=== PATIENT | male | born 1980 | race Two or more races ===

== ENCOUNTER 2021-07-21 13:38 | Emergency (ER) | payer MEDICAID, OTHER ==
[~2021-07-21] VITALS: Ht 182.9 cm; Wt 90.7 kg
[2021-07-21] MEDS ORDERED: LORazepam 2MG/ML-1ML VIAL IV ONE ×2 (14:30→16:00)
[2021-07-21 15:02] LABS: Basophils # (auto) 0.1 10 ^3/uL (0-0.2); Basophils % (auto) 0.7 % (0.0-2.0); Eosinophils # (auto) 0 10 ^3/uL (0-0.8); Eosinophils % (auto) 0.3 % (0.0-7.0); Hemoglobin 13.7 g/dL (13.5-17.5); Lymphocytes # (auto) 1.3 10 ^3/uL (0.4-5.4); Lymphocytes % (auto) 12.2 % (10.0-50.0); Mean Corpuscular Hemoglobin 28.4 pg (28.0-32.0); Mean Corpuscular Hgb Conc. 33.4 g/dL (32.0-36.0); Mean Corpuscular Volume 85.2 fL (80.0-100.0); Monocytes # (auto) 0.6 10 ^3/uL (0-1.3); Monocytes % (auto) 5.4 % (0.0-12.0); Neutrophils % (auto) 81.4 % (37.0-80.0); Red Blood Cells 4.82 10^6/uL (4.5-5.90); Red Cell Distribution Width 14.1 % (11.8-14.3)
[2021-07-21 15:23] LABS: Calcium 9.3 mg/dL (8.5-10.1); Potassium 3.2 mmol/L (3.5-5.1)
[2021-07-21 15:26] LABS: Albumin 3.6 g/dL (3.4-5.0); BUN/Creatinine Ratio 3.8
[2021-07-21 15:29] LABS: Bilirubin, Total 0.4 mg/dL (0.2-1.0); Total Protein 7.6 g/dL (6.4-8.2)
[2021-07-21] MEDS ORDERED: CARVEDILOL 12.5 MG TAB PO ONE (18:15)
[2021-07-21] MEDS ORDERED: NIFEdipine 10 MG CAP PO ONE (18:15)
[2021-07-21 19:22] VITALS: BP 138/60
[2021-07-21] MEDS ORDERED: LORazepam 0.5 MG TAB PO ONE (20:00)
[2021-07-21] MEDS ORDERED: LORazepam 0.5 MG TAB ONE (20:19)
== END 2021-07-21 20:54 | disposition home or self-care (01) ==
LOC: ER 13:38 → EDBD 13:38 → ER 20:40
DX: F11.10 Opioid abuse, uncomplicated (principal); I12.0 Hypertensive chronic kidney disease with stage 5 chronic kidney disease or end stage renal disease; N18.6 End stage renal disease; Z99.2 Dependence on renal dialysis; Z88.0 Allergy status to penicillin
CPT/HCPCS: 36415; 80053; 85025; 93005; 96374; 96376; 99284; J2060; 96375

== ENCOUNTER 2021-09-22 11:17 | Inpatient (IN) | payer MEDICAID ==
[~2021-09-22] VITALS: Ht 182.9 cm; Wt 97.6 kg
[2021-09-22] MEDS: ACCU-CHEK COMFORT CURVE STRIP VI SCH
[2021-09-22] MEDS: InsuLIN REG 1unit/0.01ml Soln (100units/ml) SC SCH
[2021-09-22] MEDS ORDERED: cloNIDine HCL 0.1 MG TAB PO ONE (11:30)
[2021-09-22 12:08] LABS: Basophils # (auto) 0.1 10 ^3/uL (0-0.2); Basophils % (auto) 0.4 % (0.0-2.0); Eosinophils # (auto) 0 10 ^3/uL (0-0.8); Eosinophils % (auto) 0.2 % (0.0-7.0); Hematocrit 31.8 % (41.0-53.0); Hemoglobin 10.8 g/dL (13.5-17.5); Lymphocytes # (auto) 0.9 10 ^3/uL (0.4-5.4); Lymphocytes % (auto) 5.1 % (10.0-50.0); Mean Corpuscular Hemoglobin 29.4 pg (28.0-32.0); Mean Corpuscular Hgb Conc. 33.9 g/dL (32.0-36.0); Mean Corpuscular Volume 86.9 fL (80.0-100.0); Monocytes # (auto) 1.2 10 ^3/uL (0-1.3); Monocytes % (auto) 6.5 % (0.0-12.0); Neutrophils # (auto) 16.1 10 ^3/uL (1.6-8.6); Neutrophils % (auto) 87.8 % (37.0-80.0); Red Blood Cells 3.66 10^6/uL (4.5-5.90); Red Cell Distribution Width 13.4 % (11.8-14.3); White Blood Cell 18.4 10^3/uL (4.4-10.8)
[2021-09-22 12:26] LABS: Albumin 2.2 g/dL (3.4-5.0); BUN/Creatinine Ratio 5.9; Magnesium 2.9 mg/dL (1.6-2.6); Potassium 3.4 mmol/L (3.5-5.1)
[2021-09-22 12:29] LABS: Bilirubin, Total 0.3 mg/dL (0.2-1.0); Total Protein 7.2 g/dL (6.4-8.2)
[2021-09-22] MEDS ORDERED: ONDANSETRON HCL 4 MG/2 ML VIAL IV ONE (14:00)
[2021-09-22] MEDS ORDERED: SODIUM CHLORIDE 0.9% 1,000 ML IV ONE (14:00)
[2021-09-22] MEDS ORDERED: MORPHINE SULFATE 4 MG/ML SYR/VIAL IV ONE (14:00)
[2021-09-22 16:03] LABS: Urine Bacteria FEW /hpf (None Seen); Urine Blood 2+ /uL (Negative); Urine Hyaline Cast MOD /lpf (0 - 2); Urine Specific Gravity 1.033 (1.001-1.035); Urine WBC 504 /hpf (0 - 3); Urine WBC Clumps PRESENT /hpf (None Seen)
[2021-09-22] MEDS ORDERED: cefTRIAXone 1GM/50ML D5W 50 ML IV ONE (17:30)
[2021-09-22] MEDS ORDERED: NITROGLYCERIN 0.4 MG SL TAB SL PRN (17:45)
[2021-09-22] MEDS ORDERED: DEXTROSE (50%) 50ML SYRG IV PRN ×2 (17:45→22:00)
[2021-09-22] MEDS ORDERED: LABETALOL HCL 5 MG/ML 4ML SYRINGE IV ONE (17:45)
[2021-09-22] MEDS ORDERED: ACCU-CHEK COMFORT CURVE STRIP VI SCH (18:00)
[2021-09-22] MEDS ORDERED: InsuLIN REG 1unit/0.01ml Soln (100units/ml) SC SCH (18:00)
[2021-09-22] MEDS: MORPHINE SULFATE INJECTION 2 MG/ML SYRG IV PRN (20:19)
[2021-09-22] MEDS ORDERED: hydrALAZINE HCL 25 MG TAB PO ONE (20:30)
[2021-09-22] MEDS ORDERED: NIFEdipine ER 30 MG TAB PO ONE ×2 (20:30→23:52)
[2021-09-22] MEDS ORDERED: hydrALAZINE HCL 20 MG/ML VL IV PRN (20:30)
[2021-09-22] MEDS: LABETALOL HCL 5 MG/ML 4ML SYRINGE IV PRN (21:56)
[2021-09-22] MEDS ORDERED: MEROPENEM 500MG IVPB 50 ML IV ONE (22:00)
[2021-09-22 22:49] LABS: Phosphorus 3.1 mg/dL (2.5-4.90)
[2021-09-22] MEDS ORDERED: hydrALAZINE HCL 25 MG TAB ONE (23:52)
[2021-09-22] MEDS ORDERED: MEROPENEM 1GM IVPB 100 ML IV ONE (23:53)
[2021-09-23] MEDS: MORPHINE SULFATE INJECTION 2 MG/ML SYRG IV PRN ×6 (00:30→20:30)
[2021-09-23] MEDS ORDERED: VANCOMYCIN PER PHARMACY 0 MG IV SCH (02:00)
[2021-09-23] MEDS ORDERED: CARVEDILOL 12.5 MG TAB PO ONE (02:00)
[2021-09-23] MEDS ORDERED: BENAZEPRIL HCL 10 MG TAB PO ONE (02:00)
[2021-09-23] MEDS ORDERED: PANTOPRAZOLE 40 MG/10 ML VIAL INJ IV ONE ×2 (02:00→02:20)
[2021-09-23] MEDS ORDERED: BUMETANIDE 2.5mg/10ml (0.25 mg/ml) INJ IV ONE (02:00)
[2021-09-23] MEDS ORDERED: NITROGLYCERIN 0.4 MG SL TAB SL PRN (02:15)
[2021-09-23] MEDS ORDERED: MORPHINE SULFATE INJECTION 2 MG/ML SYRG IV PRN (02:15)
[2021-09-23] MEDS ORDERED: ACETAMINOPHEN 325 MG TAB PO PRN (02:15)
[2021-09-23] MEDS ORDERED: METOCLOPRAMIDE HCL 5MG/ml INJ 2ml VIAL IV PRN (02:15)
[2021-09-23] MEDS ORDERED: DOCUSATE SOD 100 MG CAP PO PRN (02:15)
[2021-09-23] MEDS ORDERED: ALUM & MAG HYDROX-SIMETH LIQ(MAALOX) 30 ML PO PRN (02:15)
[2021-09-23] MEDS ORDERED: BUMETANIDE INJECTION 10 ML ONE (02:20)
[2021-09-23] MEDS ORDERED: CARVEDILOL 12.5 MG TAB ONE (02:20)
[2021-09-23] MEDS ORDERED: BENAZEPRIL HCL 10 MG TAB ONE (02:20)
[2021-09-23] MEDS ORDERED: VANCOMYCIN 1GM/250ML 250 ML IV ONE ×2 (02:30→02:46)
[2021-09-23] MEDS ORDERED: fentaNYL CITRATE 100 MCG/2 ML VL ONE (03:19)
[2021-09-23] MEDS ORDERED: fentaNYL CITRATE 100 MCG/2 ML VL IV ONE (03:30)
[2021-09-23] MEDS: BUMETANIDE 2.5mg/10ml (0.25 mg/ml) INJ IV SCH ×2 (05:48→18:15)
[2021-09-23] MEDS: ACCU-CHEK COMFORT CURVE STRIP VI SCH ×4 (06:14→22:17)
[2021-09-23] MEDS: InsuLIN REG 1unit/0.01ml Soln (100units/ml) SC SCH ×4 (06:19→22:20)
[2021-09-23 06:23] LABS: Basophils # (auto) 0.1 10 ^3/uL (0-0.2); Basophils % (auto) 0.3 % (0.0-2.0); Eosinophils # (auto) 0 10 ^3/uL (0-0.8); Eosinophils % (auto) 0.2 % (0.0-7.0); Hematocrit 28.9 % (41.0-53.0); Hemoglobin 9.9 g/dL (13.5-17.5); Lymphocytes # (auto) 1.3 10 ^3/uL (0.4-5.4); Lymphocytes % (auto) 6.5 % (10.0-50.0); Mean Corpuscular Hemoglobin 29.2 pg (28.0-32.0); Mean Corpuscular Hgb Conc. 34.1 g/dL (32.0-36.0); Mean Corpuscular Volume 85.6 fL (80.0-100.0); Monocytes # (auto) 1.3 10 ^3/uL (0-1.3); Monocytes % (auto) 6.5 % (0.0-12.0); Neutrophils # (auto) 16.9 10 ^3/uL (1.6-8.6); Neutrophils % (auto) 86.5 % (37.0-80.0); Red Blood Cells 3.38 10^6/uL (4.5-5.90); Red Cell Distribution Width 13.3 % (11.8-14.3); White Blood Cell 19.6 10^3/uL (4.4-10.8)
[2021-09-23 06:32] LABS: Albumin 2.1 g/dL (3.4-5.0); Calcium 8.3 mg/dL (8.5-10.1); Potassium 3.1 mmol/L (3.5-5.1)
[2021-09-23 06:33] LABS: INR 0.96 (0.9-1.15); Partial Thromboplastin Time 31.6 sec (23.6-33.0)
[2021-09-23 06:36] LABS: BUN/Creatinine Ratio 6.1; Bilirubin, Total 0.3 mg/dL (0.2-1.0); Phosphorus 3.1 mg/dL (2.5-4.90); Total Protein 6.4 g/dL (6.4-8.2)
[2021-09-23] MEDS: LORazepam 0.5 MG TAB PO PRN ×2 (08:00→22:04)
[2021-09-23] MEDS: SEVELAMER 800 MG TAB PO SCH ×3 (09:23→18:15)
[2021-09-23] MEDS: ASPirin 81 mg TAB PO SCH (10:14)
[2021-09-23] MEDS: hydrALAZINE HCL 25 MG TAB PO SCH ×2 (10:15→22:03)
[2021-09-23] MEDS: CARVEDILOL 12.5 MG TAB PO SCH ×2 (10:15→22:04)
[2021-09-23] MEDS: B-COMPLEX W/ C & FOLIC ACID(NEPHROVITE TAB) PO SCH (10:16)
[2021-09-23] MEDS: ENOXAPARIN SOD 30 MG/0.3 ML SYRINGE SC SCH (10:16)
[2021-09-23] MEDS: CALCITRIOL 0.25 MCG CAP PO SCH (10:16)
[2021-09-23] MEDS ORDERED: HYDROmorphone HCL 2 MG/ML VL ONE ×2 (11:09→11:11)
[2021-09-23] MEDS ORDERED: HYDROmorphone HCL 2 MG/ML VL IV ONE (11:15)
[2021-09-23 15:30] LABS: Urine Bacteria FEW /hpf (None Seen); Urine Blood 2+ /uL (Negative); Urine WBC 2050 /hpf (0 - 3); Urine WBC Clumps PRESENT /hpf (None Seen)
[2021-09-23 15:36] LABS: Alcohol, Urine < 3.0 mg/dL (0-10); Amphetamine Screen, Urine NEGATIVE (NEGATIVE); Barbiturate Scree,Urine NEGATIVE (NEGATIVE); Benzodiazephine Screen, Urine NEGATIVE (NEGATIVE); Cannabinoid Screen, Urine POSITIVE (NEGATIVE); Cocaine Screen, Urine NEGATIVE (NEGATIVE); Phencyclidine Screen, Urine NEGATIVE (NEGATIVE)
[2021-09-23 15:45] LABS: Opiate Scree,Urine POSITIVE (NEGATIVE)
[2021-09-23] MEDS ORDERED: VANCOMYCIN 500 MG in D5W 5% 100 ML IV ONE (16:00)
[2021-09-23 16:20] VITALS: BP 119/69
[2021-09-23] MEDS: HYDROcodone-ACET 5/325MG TAB PO PRN ×2 (17:01→23:32)
[2021-09-23 22:00] VITALS: BP 16/80
[2021-09-23] MEDS ORDERED: MEROPENEM 500MG IVPB 50 ML IV SCH (22:00)
[2021-09-23] MEDS: PANTOPRAZOLE 40 MG/10 ML VIAL INJ IV SCH (22:03)
[2021-09-23] MEDS: ATORVASTATIN 20 MG TAB PO SCH (22:04)
[2021-09-23] MEDS: NIFEdipine ER 30 MG TAB PO SCH (22:04)
[2021-09-23] MEDS ORDERED: TEMAZEPAM 15 MG CAP PO ONE (23:45)
[2021-09-24] MEDS: MORPHINE SULFATE INJECTION 2 MG/ML SYRG IV PRN ×4 (00:30→12:53)
[2021-09-24] MEDS: HYDROcodone-ACET 5/325MG TAB PO PRN ×5 (03:38→22:58)
[2021-09-24 05:00] VITALS: BP 159/79
[2021-09-24] MEDS: BUMETANIDE 2.5mg/10ml (0.25 mg/ml) INJ IV SCH (06:14)
[2021-09-24] MEDS: ACCU-CHEK COMFORT CURVE STRIP VI SCH ×4 (06:36→22:04)
[2021-09-24] MEDS: InsuLIN REG 1unit/0.01ml Soln (100units/ml) SC SCH ×4 (06:38→22:05)
[2021-09-24] MEDS ORDERED: SODIUM CHL 0.9% 1000 ML BAG XX ONE (07:00)
[2021-09-24] MEDS: SEVELAMER 800 MG TAB PO SCH ×3 (08:51→18:12)
[2021-09-24] MEDS: ASPirin 81 mg TAB PO SCH (08:52)
[2021-09-24] MEDS: CALCITRIOL 0.25 MCG CAP PO SCH (08:53)
[2021-09-24] MEDS: B-COMPLEX W/ C & FOLIC ACID(NEPHROVITE TAB) PO SCH (08:53)
[2021-09-24 09:00] VITALS: BP 123/72
[2021-09-24] MEDS: hydrALAZINE HCL 25 MG TAB PO SCH ×2 (10:00→22:10)
[2021-09-24] MEDS: BENAZEPRIL HCL 10 MG TAB PO SCH (10:00)
[2021-09-24] MEDS: CARVEDILOL 12.5 MG TAB PO SCH ×2 (10:00→22:11)
[2021-09-24 10:26] LABS: Potassium 3.6 mmol/L (3.5-5.1)
[2021-09-24 10:31] LABS: BUN/Creatinine Ratio 5.7
[2021-09-24 10:40] LABS: Basophils # (auto) 0.1 10 ^3/uL (0-0.2); Basophils % (auto) 0.4 % (0.0-2.0); Eosinophils # (auto) 0.1 10 ^3/uL (0-0.8); Eosinophils % (auto) 0.4 % (0.0-7.0); Hematocrit 26.4 % (41.0-53.0); Hemoglobin 9.1 g/dL (13.5-17.5); Lymphocytes # (auto) 1.2 10 ^3/uL (0.4-5.4); Lymphocytes % (auto) 7.4 % (10.0-50.0); Mean Corpuscular Hemoglobin 29.4 pg (28.0-32.0); Mean Corpuscular Hgb Conc. 34.3 g/dL (32.0-36.0); Mean Corpuscular Volume 85.8 fL (80.0-100.0); Monocytes # (auto) 1.2 10 ^3/uL (0-1.3); Monocytes % (auto) 7.2 % (0.0-12.0); Neutrophils % (auto) 84.6 % (37.0-80.0); Red Blood Cells 3.08 10^6/uL (4.5-5.90); Red Cell Distribution Width 13.1 % (11.8-14.3); White Blood Cell 16.6 10^3/uL (4.4-10.8)
[2021-09-24] MEDS: ENOXAPARIN SOD 30 MG/0.3 ML SYRINGE SC SCH (11:15)
[2021-09-24] MEDS ORDERED: AZITHROMYCIN 500MG/ 250ML 250 ML IV ONE (12:15)
[2021-09-24 12:58] VITALS: BP 108/63
[2021-09-24] MEDS: HYDROmorphone HCL 2 MG TAB PO PRN ×2 (15:06→21:10)
[2021-09-24 17:00] VITALS: BP 112/67
[2021-09-24] MEDS ORDERED: VANCOMYCIN 1GM/250ML 250 ML IV ONE (21:00)
[2021-09-24 22:00] VITALS: BP 150/78
[2021-09-24] MEDS: PANTOPRAZOLE 40 MG/10 ML VIAL INJ IV SCH (22:10)
[2021-09-24] MEDS: NIFEdipine ER 30 MG TAB PO SCH (22:11)
[2021-09-24] MEDS: ATORVASTATIN 20 MG TAB PO SCH (22:11)
[2021-09-25] MEDS: HYDROmorphone HCL 2 MG TAB PO PRN ×4 (03:35→22:52)
[2021-09-25 05:00] VITALS: BP 138/96
[2021-09-25] MEDS: BUMETANIDE 2.5mg/10ml (0.25 mg/ml) INJ IV SCH ×2 (05:40→17:53)
[2021-09-25] MEDS: HYDROcodone-ACET 5/325MG TAB PO PRN ×4 (05:42→19:58)
[2021-09-25] MEDS: ACCU-CHEK COMFORT CURVE STRIP VI SCH ×4 (06:48→22:03)
[2021-09-25] MEDS: InsuLIN REG 1unit/0.01ml Soln (100units/ml) SC SCH ×4 (06:49→22:25)
[2021-09-25] MEDS: AZITHROMYCIN 500MG/ 250ML 250 ML IV SCH (08:10)
[2021-09-25] MEDS: hydrALAZINE HCL 25 MG TAB PO SCH ×2 (08:10→22:01)
[2021-09-25] MEDS: ASPirin 81 mg TAB PO SCH (08:10)
[2021-09-25] MEDS: SEVELAMER 800 MG TAB PO SCH ×3 (08:10→17:54)
[2021-09-25] MEDS: CARVEDILOL 12.5 MG TAB PO SCH ×2 (08:11→22:02)
[2021-09-25] MEDS: B-COMPLEX W/ C & FOLIC ACID(NEPHROVITE TAB) PO SCH (08:11)
[2021-09-25] MEDS: BENAZEPRIL HCL 10 MG TAB PO SCH (08:11)
[2021-09-25] MEDS: CALCITRIOL 0.25 MCG CAP PO SCH (08:11)
[2021-09-25] MEDS: ENOXAPARIN SOD 30 MG/0.3 ML SYRINGE SC SCH (08:12)
[2021-09-25] MEDS: LORazepam 0.5 MG TAB PO PRN ×3 (08:12→21:08)
[2021-09-25 08:45] VITALS: BP 164/94
[2021-09-25 12:49] VITALS: BP 147/88
[2021-09-25 17:00] VITALS: BP 162/73
[2021-09-25] MEDS: LABETALOL HCL 5 MG/ML 4ML SYRINGE IV PRN (17:55)
[2021-09-25 22:00] VITALS: BP 163/46
[2021-09-25] MEDS: PANTOPRAZOLE 40 MG/10 ML VIAL INJ IV SCH (22:01)
[2021-09-25] MEDS: ATORVASTATIN 20 MG TAB PO SCH (22:02)
[2021-09-25] MEDS: NIFEdipine ER 30 MG TAB PO SCH (22:03)
[2021-09-26] MEDS: HYDROcodone-ACET 5/325MG TAB PO PRN ×3 (00:18→07:59)
[2021-09-26] MEDS: LORazepam 0.5 MG TAB PO PRN ×3 (02:58→19:11)
[2021-09-26] MEDS: HYDROmorphone HCL 2 MG TAB PO PRN (04:55)
[2021-09-26 05:00] VITALS: BP 156/78
[2021-09-26] MEDS: ACCU-CHEK COMFORT CURVE STRIP VI SCH ×4 (06:11→22:25)
[2021-09-26] MEDS: BUMETANIDE 2.5mg/10ml (0.25 mg/ml) INJ IV SCH ×2 (06:11→17:34)
[2021-09-26] MEDS: InsuLIN REG 1unit/0.01ml Soln (100units/ml) SC SCH ×4 (06:19→22:00)
[2021-09-26] MEDS: AZITHROMYCIN 500MG/ 250ML 250 ML IV SCH (07:58)
[2021-09-26] MEDS: B-COMPLEX W/ C & FOLIC ACID(NEPHROVITE TAB) PO SCH (07:58)
[2021-09-26] MEDS: ASPirin 81 mg TAB PO SCH (07:58)
[2021-09-26] MEDS: SEVELAMER 800 MG TAB PO SCH ×3 (07:58→17:39)
[2021-09-26] MEDS: ENOXAPARIN SOD 30 MG/0.3 ML SYRINGE SC SCH (07:59)
[2021-09-26] MEDS: CALCITRIOL 0.25 MCG CAP PO SCH (07:59)
[2021-09-26] MEDS: hydrALAZINE HCL 25 MG TAB PO SCH ×2 (08:41→22:22)
[2021-09-26] MEDS: CARVEDILOL 12.5 MG TAB PO SCH ×2 (08:41→22:23)
[2021-09-26] MEDS: BENAZEPRIL HCL 10 MG TAB PO SCH (08:42)
[2021-09-26 09:00] VITALS: BP 171/96
[2021-09-26] MEDS: MORPHINE SULF 30 mg ER tab PO SCH ×2 (09:57→17:35)
[2021-09-26] MEDS ORDERED: MORPHINE SULF 30 mg ER tab PO SCH (10:00)
[2021-09-26 13:00] VITALS: BP 166/91
[2021-09-26] MEDS: hydrALAZINE HCL 20 MG/ML VL IV PRN ×2 (13:55→23:42)
[2021-09-26 17:00] VITALS: BP 162/89
[2021-09-26] MEDS: LABETALOL HCL 5 MG/ML 4ML SYRINGE IV PRN (17:35)
[2021-09-26 22:00] VITALS: BP 158/75
[2021-09-26] MEDS: PANTOPRAZOLE 40 MG/10 ML VIAL INJ IV SCH (22:22)
[2021-09-26] MEDS: ATORVASTATIN 20 MG TAB PO SCH (22:23)
[2021-09-26] MEDS: NIFEdipine ER 30 MG TAB PO SCH (22:24)
[2021-09-27] MEDS ORDERED: SODIUM CHL 0.9% 1000 ML BAG XX ONE (07:00)
== END 2021-09-27 01:11 | disposition left against medical advice (07) | DRG 720 ==
LOC: EDBD 11:17 → ER 11:17 → TELE 17:41 → TELE-CENTR 09-23 15:49 → TELE-EAST 09-23 17:28
PROVIDERS: ADMIT Hospitalist; ATTEND Family Medicine
PROC: 5A1D70Z Performance of Urinary Filtration, Intermittent, Less than 6 Hours Per Day (ICD-10-PCS; principal; 2021-09-18)
PROC: 05H933Z Insertion of Infusion Device into Right Brachial Vein, Percutaneous Approach (ICD-10-PCS; 2021-09-24)
PROC: B54MZZA Ultrasonography of Right Upper Extremity Veins, Guidance (ICD-10-PCS; 2021-09-24)
DX: A40.1 Sepsis due to streptococcus, group B (principal); J96.00 Acute respiratory failure, unspecified whether with hypoxia or hypercapnia; J12.82 Pneumonia due to coronavirus disease 2019; R65.21 Severe sepsis with septic shock; E44.0 Moderate protein-calorie malnutrition; U07.1 COVID-19; I50.33 Acute on chronic diastolic (congestive) heart failure; N18.6 End stage renal disease; J18.9 Pneumonia, unspecified organism; D63.1 Anemia in chronic kidney disease; E11.22 Type 2 diabetes mellitus with diabetic chronic kidney disease; L03.115 Cellulitis of right lower limb; I16.1 Hypertensive emergency; E78.5 Hyperlipidemia, unspecified; E87.6 Hypokalemia; F12.90 Cannabis use, unspecified, uncomplicated; J44.0 Chronic obstructive pulmonary disease with (acute) lower respiratory infection; E66.9 Obesity, unspecified; E11.40 Type 2 diabetes mellitus with diabetic neuropathy, unspecified; E88.09 Other disorders of plasma-protein metabolism, not elsewhere classified; J44.1 Chronic obstructive pulmonary disease with (acute) exacerbation; Z53.29 Procedure and treatment not carried out because of patient's decision for other reasons; F17.200 Nicotine dependence, unspecified, uncomplicated; I13.2 Hypertensive heart and chronic kidney disease with heart failure and with stage 5 chronic kidney disease, or end stage renal disease; N10 Acute pyelonephritis; Z79.4 Long term (current) use of insulin; Z99.2 Dependence on renal dialysis; Z82.49 Family history of ischemic heart disease and other diseases of the circulatory system; Z88.0 Allergy status to penicillin; Z68.29 Body mass index [BMI] 29.0-29.9, adult; Z71.6 Tobacco abuse counseling
CPT/HCPCS: 36415; 71045; 74176; 80048; 80053; 80061; 80202; 80307; 81001; 82962; 83036; 83605; 83690; 83735; 83880; 83970; 84100; 84484; 85025; 85379; 85610; 85730; 87040; 87077; 87086; 87426; 90935; 93005; 96365; 96375; C9113; G0378; J0696; J1815; J2185; J2405; J3490; J7060